=== PATIENT | male | born 1970 | race Caucasian/White ===

== ENCOUNTER 2023-11-05 17:30 | Emergency (ER) | payer OTHER, SELFPAY ==
[2023-11-05 17:31] VITALS: BP 144/93
--- NOTE | 2023-11-05 18:14 | ED.GENMED ---
History of Present Illness
General
Chief Complaint: Fall
Source: patient
Exam Limitations: none
Time Seen by Provider: 11/05/23 18:04
Travel History
Have you had any contact with someone who has COVID-19?: No
Do you have any symptoms of coronavirus? Fever > 100 degrees, chills, cough, shortness of breath, sore throat, loss of taste or smell, muscle aches, or headache?: No
History of Present Illness
History of Present Illness:
This is a 53 year old male that comes in with c/o low back pain. States that he had twisted his ankle on Jun 26. States that he is getting PT and they found that he had nerve damage. States that he got up the other night and his foot gave out and
he fell. States that he went to on Saturday at 9AM and they did an X-ray and said tht he had a compression fracture. States that he went to [facility] last night and they had an 11 hour wait and they waited 3 hours. States that he was given Muscle
relaxer daiy and Ibuprofen 800mg. States that he took on at 4pm. States that he does not want any narcotic. Denies any fever, chills, chest pain, SOB, abd pain, nausea, vomiting, diarrhea, headache, dizziness, urinary burning or Incontinence.
Past History
Past History
ED Past Medical History: None; Negative Asthma, HTN, Hypercholesterolemia or NIDDM
ED Past Surgical History: None
Social History
Tobacco: Smoker
Alcohol: Occasional
Personal: Single
Living: with family
Employment: Employed
Review of Systems
Review of Systems
All Other Systems: ROS reviewed and negative except as documented in HPI and ROS
Constitutional: Reports no symptoms; Denies fever or chills
EENT: Reports no symptoms
Respiratory: Reports no symptoms; Denies cough or trouble breathing
Cardiac: Reports no symptoms; Denies chest pain
ABD/GI: Reports no symptoms; Denies abdominal pain, nausea, vomiting or diarrhea
: Reports no symptoms; Denies dysuria, frequency, incontinence or urgency
Musculoskeletal: Reports back pain (Low back pain)
Skin: Reports no symptoms
Neurological: Reports no symptoms; Denies dizzy or headache
Psychiatric: Reports no symptoms
Phy Exam
General Physical Exam
General Presentation: no apparent distress (States that he does not want narcotic pain mediction)
General age: appears stated age
General Skin: warm and dry
General Habitus: normal
General Mental: alert
General Hydration: appears well hydrated
ENT Exam
ENT Exam: TM's normal, pharynx normal and neck supple
Eye Exam
Eye Exam: EOMI
Cardiovascular Exam
Cardiovascular Exam: regular rate/rhythm and normal peripheral pulses
Pulmonary Exam
Pulmonary Exam: lungs clear, no respiratory distress, no rales, chest non tender, no crackles, no rhonchi, no wheezing and no cough
Musculoskeletal Exam
Musculoskeletal Exam: full ROM, back pain (Low back pain with palpation over the spine. Negative lateral tenderness. ) and no edema
Skin Exam
Skin Exam: normal color, warm/dry, no rash and no petechia
Psychiatric Exam
Psychiatric Exam: normal mood/affect
Course
Orders/Labs/Results
Orders:
Orders
11/05/23 18:13
CT Lumbar Spine W/o Iv Contras Urgent
Comment:
Reason For Exam: Low back pain
Acetaminophen [Tylenol] 1,000 mg PO NOW STA
Vital Signs
Initial and Last Documented VS:
Initial Vital Signs
Temp Pulse Resp BP Pulse Ox
98.2 F 81 18 144/93 99
11/05/23 17:31 11/05/23 17:31 11/05/23 17:31 11/05/23 17:31 11/05/23 17:31
Last Documented Vital Signs
Temp Pulse Resp BP Pulse Ox
98.2 F 81 18 144/93 99
11/05/23 17:31 11/05/23 17:31 11/05/23 17:31 11/05/23 17:31 11/05/23 17:31
MDM/Problems Addressed
Differential Diagnosis Includes:
Compression Fracture,
MDM/Problems Addressed:
This is a 53 year old male that comes in with c/o low back pain. States that he feel when his foot gave out the other night. Patient went to and was told that he has a compression fracture. Patient was given Motrin 800 and Muscle relaxer daily.
States that he can't get an appointment with the Orthopedic till Nov. States that he does not want narcotic.
Back into see patient. Explained that his CT shows Fracture of L2 and there is loss of vertebral height. There is also Canal stenosis and degenerative changes. Message and report or CT sent to Orthopedics to see if they can get patient in sooner
then later. At this time patient is using Tylenol and Ibuprofen for pain. Will have patient call the Orthopedic office for further evaluation tomorrow and he will be able to be seen by Dr. Johnson.
Chronic conditions affecting care:
NA
Acute Exacerbation and/or Progression of Chronic Illness:
NA
*Radiology
Radiology exam reviewed: radiology read reviewed (CT lumbar spine- Acute superior endplace fracture of L2 with severe loss of vertebral body height and mild retropulsion of the posterior superior endplate into the anterior epidural space causing
mild central canal stenosis. Moderate central canal stenosis at L3/L4 and L4'/L5 secondary to diffuse ) and all reviewed NAD by ED Provider (CT cont- disc bulges. Moderate discogenic degenerative disease at L5/S1 with a diffuse disc bulge causing
mild to moderate central canal stenosis and severe bilateral neural foraminal narrowing. )
*Pulse Oximetry
Patient hypoxic: no
*EKG
Interpreted by ED Provider?: NA
Rate: EKG- N/A
*Nuclear Equipment Sales Engineer Interpretation
Rate: Nuclear Equipment Sales Engineer- N/A
*Critical Care Note
Total Time (30-74mins, 75-104mins- exclusive of procedures): Not Applicable
ED Attending Note
-
Portions of this chart may have been created with voice recognition software.� Occasional wrong word or��sound alike� substitutions may have occurred due to the inherent limitations of voice recognition software.
Discharge Plan
Departure
Patient Disposition: Home (Routine Discharge)
Date of Disposition: 11/05/23
Time of Disposition: 19:43
Patient with high blood pressure during this ER visit?: Yes
Condition: Good
Covid-19: Not Applicable
Discharge Problem:
Compression fx, lumbar spine
Instructions: Vertebral Compression Fracture (DC), BLOOD PRESSURE
Referrals:
Alok Tran MD [Active] - Follow up in 2-3 days
Activity Restrictions/Additional Instructions:
As discussed, you have a Compression fracture of L2. There is also bulging disc and some degenerative changes. Please use Tylenol 1000mg every 6 hours for pain and alternate with Ibuprofen 600mg every 6 hours with food for pain. Rest. Call the
Orthopedic office tomorrow and they will give you the time for you to come in. Dr. Johnson . You may also use Heat or ice to the back to help with pain control. IF YOU HAVE ANY OTHER CONCERNS PLEASE RETURN TO THE EMERGENCY ROOM.
Interventions
Interventions:
*Risk Screen - Suicide Last Done: 11/05/23 18:32
*General Assessment Last Done: 11/05/23 18:32
*Neglect/Abuse Screening Last Done: 11/05/23 18:32
*ED COVID-19 Vaccine History Last Done: 11/05/23 18:31
ED-Musculoskeletal Assessment Last Done: 11/05/23 18:32
ED- Neurological Assessment Last Done: 11/05/23 18:32
ED-Skin Assessment Last Done: 11/05/23 18:33
[2023-11-05] MEDS: TYLENOL 1000 MG PO (18:17)
== END 2023-11-05 20:08 | disposition home or self-care (01) ==
LOC: EMR 17:30
PROVIDERS: EMERGENCY PHYSICIAN Emergency Medicine; FAMILY PHYSICIAN Family Medicine
DX: S32.029A Unspecified fracture of second lumbar vertebra, initial encounter for closed fracture (principal); W19.XXXA Unspecified fall, initial encounter; F17.200 Nicotine dependence, unspecified, uncomplicated
CPT/HCPCS: 99284; 72131